=== PATIENT | male | born 1980 | race Caucasian/White ===

== ENCOUNTER → 2016-08-27 | Outpatient (CLI) | payer OTHER ==
--- NOTE | 2016-08-27 08:47 | US ---
Right Upper Quadrant Sonogram (Limited Abdominal) Clinical Indications: Acute alcoholic hepatitis. Findings: The gallbladder is adequately distended, and no stones are identified. The thickness of t he wall of the gallbladder is within normal limits, and no masses are seen. The biliary ducts are no t dilated. Echogenicity of the liver is diffusely increased, compatible with diffuse hepatocellular abnormality such as fatty infiltration, chronic hepatitis, and cirrhosis. The surface of the liver is smooth. No hepatic masses are found. No ascites. The right kidney is unremarkable. The pancreas ortiz s diffusely increased echogenicity, normal size, and no masses. The abdominal aorta and upper inferio r vena cava are normal. Impression: Diffuse hepatocellular abnormality (nonspecific).
== END ==
LOC: BMCIMAGING 07:43
PROVIDERS: ATTEND Internal Medicine
DX: R93.2 Abnormal findings on diagnostic imaging of liver and biliary tract (principal)